=== PATIENT | female | born 1995 | race American Indian/Alaskan Native ===

== ENCOUNTER 2016-07-31 14:33 | Outpatient (CLI) | payer MEDICAID ==
[2016-07-31] MEDS ORDERED: LACTATED RINGERS 1,000 ML ONE (16:25)
[2016-07-31 16:34] VITALS: BP 119/73
[2016-07-31] MEDS ORDERED: VISTARIL PO PRN (18:12)
[2016-08-01] MEDS ORDERED: PITOCin/NS 20 UNIT/1000ML DRIP 20 UNITS/1,000 ML BAG IV SCH (05:30)
[2016-08-01] MEDS ORDERED: BICITRA PO SCH (05:30)
[2016-08-01] MEDS ORDERED: ANCEF/STERILE WATER 2 GM/20 ML 2 GM/20 ML SYRINGE IV NR (05:30)
[2016-08-01] MEDS ORDERED: PEPCID IV SCH (05:30)
[2016-08-01] MEDS ORDERED: REGLAN IV SCH (05:30)
[2016-08-01] MEDS ORDERED: LACTATED RINGERS 1,000 ML IV SCH (05:30)
== END 2016-07-31 18:35 | disposition home or self-care (01) ==
LOC: TRG 14:33
PROVIDERS: ATTEND Obstetrics & Gynecology
DX: O47.1 False labor at or after 37 completed weeks of gestation (principal); Z3A.39 39 weeks gestation of pregnancy
CPT/HCPCS: 59025; 96360; J7120; Q0177

== ENCOUNTER 2018-04-28 09:36 | Inpatient (IN) | payer OTHER ==
--- NOTE | 2018-04-27 17:52 | History and Physical Report ---
History of Present Illness Date of examination: 04/24/18 Chief complaint: Repeat delivery with sterilization History of present illness: EDC Confirmation: 05/05/2018 Gestational Age: 8 2/7 weeks Past History : 4 Term Births: 2 Living Children: 2 Para: 2 Prev : 2 Aborta: 1 Elect. Ab: 1 # 1 Delivery date: 06/2013 Weeks Gestation: term Delivery type: Anesthesia type: epidural Delivery location: [facility] [place] Infant Sex: Male weight: 6-13 Comments: failure dilate and intolerance # 2 Delivery date: 2014 Weeks Gestation: 12 Delivery type: EAB Comments: denies complications # 3 Delivery date: 08/01/2016 Weeks Gestation: 39 Delivery type: Anesthesia type: epidural Delivery location: [facility] Infant Sex: female weight: 8.25 Name: Johnny Comments: Repeat c/s Past Medical History: Reviewed history from 01/02/2016 and no changes required: Negative Past Medical History Past Surgical History: Reviewed history from 08/01/2016 and no changes required: x2 Previous Tobacco Use: Signed On 02/27/2017 Smoked Tobacco Use: Never smoker Smokeless Tobacco Use: Never Counseled to quit/cut down: yes Passive smoke exposure: no Drug use: no HIV high-risk behavior: no Caffeine use: 0 drinks per day Previous Alcohol Use: Signed On 02/27/2017 Alcohol use: no Exercise: no Seatbelt use: 100 % Dietary Counseling: pn yes PAP Smear History: Date of Last PAP Smear: 01/02/2016 Family History Summary: Other family member - Has No Family History of Uterine Cancer - Entered On: 09/25/2017 Other family member - Has No Family History of Stomach Cancer - Entered On: 09/25/2017 Other family member - Has No Family History of Spontaneous DVT-PE - Entered On: 09/25/2017 Other family member - Has No Family History of Small Bowel Cancer - Entered On: 09/25/2017 Other family member - Has No Family History of Pancreatic Cancer - Entered On: 09/25/2017 Other family member - Has No Family History of Ovarvian Cancer - Entered On: 09/25/2017 Other family member - Has No Family History of Kidney/Urinary Tract Cancer - Entered On: 09/25/2017 Other family member - Has No Family History of Brain Cancer - Entered On: 09/25/2017 Other family member - Has No Family History of Biliary Tract Cancer - Entered On: 09/25/2017 MGF - Has Family History Colon Cancer - Entered On: 09/25/2017 Cousin (female) - Has Family History Breast Cancer - maternal 2nd - Entered On: 09/25/2017 Social History: Reviewed history from 02/27/2017 and no changes required: Patient is single Smoking History: Patient has never smoked. Past Medical History Abnormal PAP: negative Social Hx: Patient is single Smoking History: Patient has never smoked. Infection History Hx of STD: none Personal hx. of genital herpes: no Partner hx. of genital herpes: no Rash, Viral, or Febrile illness since last LMP? no Varicella/Chicken Pox Status: Previous Disease TB Risk: no Genetic History Congenital Heart Defect: Mom: no Americo Disease: Mom: no Thalassemia Mom: no Neural Tube Defect Mom: no Down's Syndrome Mom: no Levi-Sachs Mom: no Sickle Cell Disease/Trait Mom: yes Comments: nephew SCD Hemophilia Mom: no Muscular Dystrophy Mom: no Cystic Fibrosis Mom: no [place] Chorea Mom: no Mental Retardation Mom: no Fragile X Mom: no Other Genetic/Chromosomal Disorder Mom: no Child w/other defect Mom: no Other: Autism 1st cousin paternal Enviromental Exposures Enviromental Exposures Reviewed Xray Exposure: no Medication, drug, or alcohol use since LMP: no Chemical/Other Exposure: no Exposure to Cat Liter: no Hx of Parvovirus (Fifth Disease): no Occupational Exposure to Children: other Comments: Ronaldo Active Medications (reviewed today): None Current Allergies (reviewed today): No known allergies Past History - Obstetrical History Expected Date of Delivery: 05/05/18 Actual Gestation: 38 Week(s) 6 Day(s) : 4 Medications and Allergies Allergies Allergy/AdvReac Type Severity Reaction Status Date / Time No Known Allergies Allergy Verified 12/07/15 15:23 Home Medications Medication Instructions Recorded Confirmed Last Taken Type Ferrous Sulfate [Feosol 325 MG tab] 325 mg PO BID #60 tablet 08/03/16 Unknown Rx Ibuprofen [Motrin 800 MG tab] 800 mg PO Q6H PRN #30 tablet 08/03/16 Unknown Rx oxyCODONE /ACETAMINOPHEN [Percocet 1 - 2 tab PO Q4H PRN #30 tablet 08/03/16 Unknown Rx 5/325 mg] Active Meds: Active Medications Citric Acid/Sodium Citrate (Bicitra) 30 ml PO ONCE ONE Stop: 04/28/18 11:01 Famotidine (Pepcid) 20 mg IV ONCE ONE Stop: 04/28/18 11:01 Cefazolin Sodium (Ancef/Sterile Water 2 Gm/20 Ml) 2 gm in 20 mls @ 80 mls/hr IV PREOP NR; Protocol Stop: 04/28/18 11:40 Cefazolin Sodium (Ancef/Ns 1 Gm/50 Ml) 1 gm in 50 mls @ 100 mls/hr IV PREOP NR; Protocol Stop: 04/28/18 11:40 Lactated Ringer's (Lactated Ringers) 1,000 mls @ 2,250 mls/hr IV PREOP ESTHER Stop: 04/29/18 09:27 Oxytocin/Sodium Chloride (Pitocin/Ns 20 Unit/1000ml Drip) 20 units in 1,000 mls @ 0 mls/hr IV TITR ESTHER Metoclopramide HCl (Reglan) 10 mg IV ONCE ONE Stop: 04/28/18 11:01 - Physical Exam Breasts: Positive: deferred Cardiovascular: Regular rate Lungs: Positive: Clear to auscultation, Normal air movement Abdomen: Positive: other (obese) Extremities: Positive: normal Results All other labs normal. Assessment and Plan - Patient Problems (1) 39 weeks gestation of Status: Acute (2) Maternal care for scar from previous delivery Status: Acute Plan to address problem: Consent reviewed and signed . The risks and alternatives for this surgery were reviewed with the patient. She was informed of possible bleeding, infection, injury to bowel, bladder, ureters or other adjacent organs. The patient was instructed/informed the following: The normal length of hospital stay for this procedure. Nothing to eat or drink after midnight the evening prior to surgery. Pre-op instruction sheets given. Wound care instructions given. Infection precautions reviewed, patient to call for any signs or symptoms of infection. The usual discomforts associated with this procedure were detailed. Proper use of pain medicines was reviewed. Patient was given ample opportunity to have all her questions answered before signing informed consent. (3) BMI 45.0-49.9, adult Status: Acute (4) Sterilization Status: Acute Plan to address problem: Risks of regret emphasized. Permanent and irreversible condition explained to patient. Patient verbalized understanding. Consent reviewed and signed. . The risks and alternatives to this surgery were reviewed with the patient. . Patient given ample opportunity to have all her questions answered before signing informed consent. Patient informed of possible bleeding. 1%failure rate emphasized
[~2018-04-28 09:36] MED LIST: ANCEF/NS 1 GM/50 ML 1 GM/50 ML BAG IV NR; ANCEF/STERILE WATER 2 GM/20 ML 2 GM/20 ML SYRINGE IV NR
[2018-04-28] MEDS: LACTATED RINGERS 1,000 ML IV SCH ×2 (10:00→11:20)
[2018-04-28 10:15] LABS: Hematocrit 33.3 % (30.3-42.9); Mean Corpuscular HGB Conc 33 % (30-34); Mean Corpuscular Volume 72 fl (79-97); Platelet Count 269 K/mm3 (140-440); Red Blood Count 4.61 M/mm3 (3.65-5.03); Red Cell Distribution Width 17.1 % (13.2-15.2)
[2018-04-28] MEDS ORDERED: TORADOL IV PRN ×2 (10:56→15:50)
[2018-04-28] MEDS ORDERED: PHENERGAN PO PRN (10:56)
[2018-04-28] MEDS ORDERED: DILAUDID IV PRN ×2 (10:56)
[2018-04-28] MEDS ORDERED: PHENERGAN PR PRN (10:56)
[2018-04-28] MEDS ORDERED: NARCAN 0.4 MG/1 ML IV PRN ×2 (10:56)
[2018-04-28] MEDS ORDERED: ZOFRAN IV PRN ×2 (10:56)
[2018-04-28] MEDS ORDERED: PEPCID IV NR (11:00)
[2018-04-28] MEDS ORDERED: SODIUM CHLORIDE FLUSH SYRINGE 10 ML IV NR (11:00)
[2018-04-28] MEDS ORDERED: BICITRA PO ONE (11:00)
[2018-04-28] MEDS ORDERED: REGLAN IV NR (11:00)
[2018-04-28] MEDS ORDERED: SUBLIMAZE ONE (11:03)
[2018-04-28] MEDS ORDERED: ASTRAMORPH PF 10MG/10ML ONE (11:03)
[2018-04-28] MEDS ORDERED: ANCEF IV ONE (11:55)
[2018-04-28] MEDS ORDERED: ANCEF/STERILE WATER 2 GM/20 ML IV ONE (11:55)
[2018-04-28] MEDS ORDERED: WATER FOR IRRIG STERILE IR ONE (12:30)
[2018-04-28] MEDS ORDERED: NACL 0.9% IR ONE (12:30)
[2018-04-28] MEDS: PITOCin/NS 20 UNIT/1000ML DRIP 20 UNITS/1,000 ML BAG IV SCH ×2 (12:41→13:30)
[2018-04-28] MEDS ORDERED: KETALAR ONE (13:05)
--- NOTE | 2018-04-28 13:58 | Operative Report ---
Operative Report Operative Report: Date: 04/28/2018 Preoperative diagnosis: 1. Intrauterine at 39 weeks 2. Previous delivery 2 3. Desires sterilization 4. Morbidly obese Postoperative diagnosis: 1. Intrauterine at 39 weeks 2. Previous delivery 2 3. Desires sterilization 4. Morbidly obese Procedure: 1. Low uterine transverse incision for delivery 2. Bilateral salpingectomy for sterilization Surgeon: Kamala Castillo MD Cloth Wire Weaver: [] Anesthesia: Epidural Anesthesiologist: Dr. Gracia Estimated blood loss: 500 mL Urine out: 100 mL Findings: Live born female . Weight 9 lbs. 0 oz. Apgars 8 at 1 minute and 9 at 5 minutes. Uterus enlarged, tubes grossly normal, ovaries grossly normal. Procedure: After risk, benefits, complications, consequences and alternatives for this procedure were discussed with patient and consents were reviewed and signed, she was taken to the OR where epidural anesthesia was placed. She was then placed in the left lateral tilt position, and prepped and draped in the usual sterile fashion. Timeout was performed, and an appropriate level of anesthesia was noted, a Pfannenstiel incision was made and extended to the fascia which was incised and extended in the lateral directions. The overlying fascia was sharply dissected away from the underlying rectus muscles in the superior and inferior directions. The midline was entered bluntly. The vesicouterine fold was incised and with blunt dissection the bladder flap was created. A transverse incision was made in the lower uterine segment and extended in superiolateral direction with finger fractionation. Clear fluid was noted. The infant was delivered from cephalic position. Mouth and nose were bulb suctioned. Spontaneous cry and excellent tone were noted. Cord was doubly clamped and cut. The infant was given to /resuscitation team present. The placenta was manually extracted. The uterus was then exteriorized and cleared of any further products of conception or placental tissue. The incision was reapproximated using 0 Vicryl in a running interlocking stitch. Grossly normal uterus, tubes and ovaries were noted. Due to multiple adhesions she had several areas in the uterine serosa that was friable and was made hemostatic 0 Vicryl and 3-0 Vicryl. Using the [employer] open fusion device, bilateral salpingectomy was performed. Once hemostasis was noted, the uterus was allowed back into the pelvic cavity. The pelvis was irrigated with warm normal saline. The mesosalpinx was hemostatic. Again hemostasis was noted . Surgicel applied for further hemostasis. Interceed was then placed to prevent adhesions. Then attention was turned to the rectus muscles. The rectus muscles reapproximated using 0 Vicryl in a simple interrupted stitch x 3. Once hemostasis was noted, the fascia was reapproximated using 0 Vicryl running stitch fashion. The subcuticular adipose tissue was reapproximated using 0 Vicryl interrupted fashion. Once hemostasis was noted skin incision was reapproximated using 4-0 Vicryl on a Taj needle in a subcuticular manner. Counts were correct 3. Patient tolerated procedure well state recovery room in stable condition.
[2018-04-28] MEDS ORDERED: MORPHINE IV PRN ×2 (15:50)
[2018-04-28] MEDS ORDERED: SODIUM CHLORIDE FLUSH SYRINGE 10 ML IV SCH (15:50)
[2018-04-28] MEDS ORDERED: MILK OF MAGNESIA PO PRN (15:50)
[2018-04-28] MEDS ORDERED: TYLENOL PO PRN (15:50)
[2018-04-28] MEDS ORDERED: MYLICON PO PRN (15:50)
[2018-04-28] MEDS ORDERED: TUCKS PAD TP PRN (15:50)
[2018-04-28] MEDS ORDERED: PITOCin/NS 20 UNIT/1000ML DRIP 20 UNITS/1,000 ML BAG IV SCH (15:50)
[2018-04-28] MEDS ORDERED: LANSINOH TP PRN (15:50)
[2018-04-28] MEDS: D5LR 1,000 ML IV SCH (17:43)
[2018-04-28] MEDS: ceFAZolin 2 GM in NACL 0.9% 100 ML IV SCH (20:25)
[2018-04-29 01:33] LABS: Hematocrit 34.1 % (30.3-42.9); Hemoglobin 10.9 gm/dl (10.1-14.3)
[2018-04-29] MEDS: D5LR 1,000 ML IV SCH (01:39)
[2018-04-29] MEDS: ceFAZolin 2 GM in NACL 0.9% 100 ML IV SCH (03:33)
[2018-04-29] MEDS: PERCOCET 5/325 PO PRN ×2 (04:12→15:16)
[2018-04-29] MEDS ORDERED: BOOSTRIX IM ONE (06:00)
--- NOTE | 2018-04-29 08:03 | Progress Note ---
Assessment and Plan Fundus firm, ML, U/1, vaginal bleeding is small. Unable to assess abdominal incision, dressing in place. Dressing is C/D/I, to be removed with shower this morning. Patient reports ambulating well to restroom without c/o dizziness or feeling faint. Encouraged ambulation throughout the day and frequent use of IS. Patient reports pain is well controlled with pain medications, see MAR. is going well, supplementing with formula as needed. DWP post op lab results. VSSAF. Continue postop pathway. Subjective - Subjective Date of service: 04/29/18 Principal diagnosis: POD 1 s/p Repeat section with BTL Patient reports: appetite normal, voiding normally, pain well controlled, ambulating normally Sparks: doing well Objective - Vital Signs Latest vital signs: Vital Signs Temp Pulse Resp BP BP Pulse Ox 04/29/18 04:12 20 04/29/18 00:01 98.6 F 89 16 114/67 96 04/28/18 20:43 98.4 F 97 H 18 113/69 95 04/28/18 15:18 99.2 F 86 18 97/56 97 04/28/18 14:46 73 17 112/58 97 04/28/18 14:31 69 20 94/46 98 04/28/18 14:15 77 22 108/53 97 04/28/18 14:10 63 18 108/53 97 04/28/18 14:05 80 19 109/62 94 04/28/18 13:59 98.5 F 95 H 17 113/66 04/28/18 10:39 98.5 F 18 04/28/18 10:03 94 H 129/78 Intake and Output 04/28/18 04/28/18 04/29/18 15:59 23:59 07:59 Intake Total 3404.902 869 3332.667 Output Total 350 1700 Balance 3054.167 100 -208.333 Intake: IV 3404.167 100 991.667 D5lr 1,000 ml @ 125 mls/ 991.667 hr IV DIRECT ESTHER Rx#: [id number] Lactated Ringers 1,000 ml 1000 @ 2250 mls/hr IV PREOP ESTHER Rx#:[id number] PITOCin/NS 20 UNIT/1000ML 204.167 DRIP 20 units In 1,000 ml @ As Directed IV TITR ESTHER Rx#:[id number] ceFAZolin 2 GM In NaCl 0. 100 9% 100 ml @ 200 mls/hr IV Q8H [facility] Rx#:[id number] Oral 0 200 Intake, Free Water 300 Output: Urine 350 1700 Indwelling Catheter 900 Void 800 Other: Total, Intake Amount 0 200 Total, Output Amount 800 # Voids Void 1 Weight 127.006 kg Estimated Blood Loss 500 - Exam Breasts: Present: normal Cardiovascular: Present: Regular rate, Normal S1, Normal S2 Lungs: Present: Clear to auscultation Abdomen: Present: normal appearance, soft Uterus: Present: normal, firm Extremities: Present: normal Deep Tendon Reflex Grade: Normal +2 Incision: Present: dressed (C/D/I) - Labs Labs: Abnormal lab results 04/28/18 Range/Units 10:00 MCV 72 L (79-97) fl MCH 24 L (28-32) pg RDW 17.1 H (13.2-15.2) %
[2018-04-29] MEDS: IBUPROFEN PO PRN ×3 (08:31→22:38)
[2018-04-30] MEDS ORDERED: BOOSTRIX IM ONE (06:00)
--- NOTE | 2018-04-30 06:50 | Progress Note ---
Assessment and Plan - Patient Problems (1) delivery delivered Onset Date: ~04/30/18 Current Visit: No Status: Acute Plan to address problem: Resting No c/o voiced VSS FF below umb Lochia scant Incision D&I NB in nursery for hearing test during rounds. Bili-light in room. Asypmtomatic anemia Doing well s/p repeat c/s with BTL P:Continue pathway Plan d/c tomorrow. Subjective - Subjective Date of service: 04/30/18 (pt request d/c tomorrow) Principal diagnosis: POD 2 s/p Repeat section with BTL Patient reports: appetite normal, voiding normally, pain well controlled, ambulating normally : doing well, other (NB under bili-lights) Objective - Vital Signs Latest vital signs: Vital Signs Temp Pulse Resp BP Pulse Ox 04/30/18 00:42 98.6 F 94 H 20 114/68 04/29/18 16:32 97.8 F 84 18 112/79 97 04/29/18 07:22 97.8 F 100 H 18 103/62 96 Intake and Output 04/29/18 04/29/18 04/30/18 14:59 22:59 06:59 Intake Total 480 480 600 Output Total 600 800 Balance -120 -320 600 Intake: Oral 480 480 Intake, Free Water 600 Output: Urine 600 800 Void 600 800 Other: Total, Intake Amount 480 480 Total, Output Amount 600 800 # Voids Void 1 1 1 - Exam Breasts: Present: normal Cardiovascular: Present: Regular rate Lungs: Present: Normal air movement (stressed importance to continue to use IS often) Abdomen: Present: normal appearance, soft, normal bowel sounds Uterus: Present: normal, fundal height below umbilicus Extremities: Present: normal Incision: Present: normal, dry, intact
[2018-04-30] MEDS: PERCOCET 5/325 PO PRN ×2 (08:30→17:48)
[2018-04-30] MEDS: IBUPROFEN PO PRN ×2 (08:30→17:49)
[2018-05-01] MEDS: PERCOCET 5/325 PO PRN ×3 (00:08→12:35)
[2018-05-01] MEDS: IBUPROFEN PO PRN ×3 (00:09→12:36)
--- NOTE | 2018-05-01 07:37 | Discharge Summary ---
Providers - Providers Date of Admission: 04/28/18 09:36 Date of discharge: 05/01/18 (desires d/c home) Attending physician: YULY BUTCHER 04/28/18 15:50 Consult to Jackhammer Splitter Operator [CONS] Routine Reason For Exam: Primary care physician: YULY BUTCHER Hospitalization Reason for admission: repeat c/s Condition: Good Pertinent studies: postop H&H 10.9/34.1 Procedures: repeat c/s with tubal ligation Hospital course: uncomplicated c/s and course Disposition: DC-01 TO HOME OR SELFCARE - Discharge Diagnoses (1) delivery delivered Status: Acute (2) Sterilization Status: Acute Core Measure Documentation - Palliative Care Palliative Care/ Comfort Measures: Not Applicable - Core Measures Any of the following diagnoses?: none Exam - Constitutional Vitals: Temp Pulse Resp BP Pulse Ox 98.4 F 89 18 115/72 97 05/01/18 02:05 05/01/18 02:05 05/01/18 02:05 05/01/18 02:05 04/29/18 16:32 General appearance: Present: no acute distress, well-nourished - EENT Eyes: Present: PERRL ENT: hearing intact, clear oral mucosa - Neck Neck: Present: supple, normal ROM - Respiratory Respiratory effort: normal Respiratory: bilateral: CTA - Cardiovascular Heart Sounds: Present: S1 & S2. Absent: rub, click - Extremities Extremities: pulses symmetrical, No edema Peripheral Pulses: within normal limits - Abdominal General gastrointestinal: Present: soft, non-tender, non-distended, normal bowel sounds Female genitourinary: Present: normal - Integumentary Integumentary: Present: clear, warm, dry - Musculoskeletal Musculoskeletal: gait normal, strength equal bilaterally - Psychiatric Psychiatric: appropriate mood/affect, intact judgment & insight - Neurologic Neurologic: CNII-XII intact, moves all extremities - Additional findings Additional findings: lochia scant, fundus firm, bottle feeding, incision D&I - steristrips changed yesterday Plan Activity: advance as tolerated Diet: regular Wound: open to air, keep clean and dry Follow up with: YULY BUTCHER MD [Primary Care Provider] - 05/06/18 (Congratulations!! Please keep your appointment scheduled 05/06/18 for your incision check. Call the office for any questions or concerns.) Prescriptions: Ibuprofen [Motrin 800 MG tab] 800 mg PO TID PRN #30 tablet PRN Reason: Pain oxyCODONE /ACETAMINOPHEN [Percocet 5/325 mg] 1 - 2 tab PO Q4HR PRN #20 tablet PRN Reason: Pain
[2018-05-01 09:28] VITALS: BP 119/65
== END 2018-05-01 13:35 | disposition home or self-care (01) | DRG 766 ==
LOC: APU 09:36 → OB 15:29
PROVIDERS: ADMIT Obstetrics & Gynecology; ATTEND Obstetrics & Gynecology
PROC: 10D00Z1 Extraction of Products of Conception, Low, Open Approach (ICD-10-PCS; principal; 2018-04-28)
PROC: 0UB70ZZ Excision of Bilateral Fallopian Tubes, Open Approach (ICD-10-PCS; 2018-04-28)
PROC: 3E0234Z Introduction of Serum, Toxoid and Vaccine into Muscle, Percutaneous Approach (ICD-10-PCS; 2018-04-30)
DX: O34.211 Maternal care for low transverse scar from previous cesarean delivery (principal); E66.01 Morbid (severe) obesity due to excess calories; O99.214 Obesity complicating childbirth; Z71.3 Dietary counseling and surveillance; Z23 Encounter for immunization; Z30.2 Encounter for sterilization; Z3A.39 39 weeks gestation of pregnancy; Z37.0 Single live birth; O99.89 Other specified diseases and conditions complicating pregnancy, childbirth and the puerperium; N73.6 Female pelvic peritoneal adhesions (postinfective)
CPT/HCPCS: 36415; 85014; 85018; 85027; 86592; 86850; 86900; 86901; 88302; 90471; 90715; G0378; A6250; C1765; J0690; J1885; J2274; J2405; J2590; J2765; J3010; J7120; J7121